=== PATIENT | male | born 1945 | race Caucasian/White ===

== ENCOUNTER 2017-01-18 10:15 | Outpatient (CLI) | payer MEDICARE, OTHER ==
--- NOTE | 2017-01-18 16:58 | XRAY Report ---
COMPLETE CERVICAL SPINE: 01/18/2017 CLINICAL INDICATION: Numbness of hands and arms. COMPARISON: 01/02/2008 FINDINGS: AP, lateral, oblique, odontoid views of the cervical spine demonstrate progression of dege nerative disk and facet disease. Osseous neural foraminal encroachment has increased, especially on the left at C5-6 and 6-7. There is no evidence of interval fracture. The prevertebral soft tissues appear unremarkable. IMPRESSION: PROGRESSION OF DEGENERATIVE CHANGES. JOB #: [id number] EXT JOB #:[id number]
== END 2017-01-18 10:16 | disposition home or self-care (01) ==
LOC: DI.S 10:15
PROVIDERS: ATTEND Nurse Practitioner Family
DX: M50.30 Other cervical disc degeneration, unspecified cervical region (principal); M47.892 Other spondylosis, cervical region
CPT/HCPCS: 72050

== ENCOUNTER 2017-10-26 19:31 | Outpatient (CLI) | payer OTHER, MEDICARE | END 2017-10-26 19:32 | disposition critical access hospital (66) | LOC: EMS 19:31 | PROVIDERS: ATTEND Surgery | DX: R07.81 Pleurodynia (principal); M25.511 Pain in right shoulder; V22.4XXA Motorcycle driver injured in collision with two- or three-wheeled motor vehicle in traffic accident, initial encounter; Y92.414 Local residential or business street as the place of occurrence of the external cause | CPT/HCPCS: A0425; A0429 ==

== ENCOUNTER 2017-10-26 20:12 | Emergency (ER) | payer OTHER, MEDICARE ==
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
[2017-10-26] MEDS ORDERED: HYDROcod/ACET 5/325 Prepack 4 PO STA (22:03)
--- NOTE | 2017-10-26 22:13 | XRAY Preliminary Report ---
Exam: XR ELBOW 3 VIEW RT IMPRESSION: No right elbow fracture or malalignment. [facility] SITE ID: [id number]
--- NOTE | 2017-10-26 22:14 | XRAY Preliminary Report ---
Exam: XR KNEE 4 VIEW RT IMPRESSION: No right knee fracture or malalignment. [facility] SITE ID: [id number]
--- NOTE | 2017-10-26 22:17 | XRAY Preliminary Report ---
Exam: XR RIBS W/PA CHEST RT IMPRESSION: 1. No displaced rib fracture or complication from rib fracture seen. 2. Right peripheral upper lung zone approximately 3.5 cm pleural-based density which is more rounded than would be expected for a subpleural hematoma. In the absence of a known malignancy, favor subple ural lipoma. Recommend nonemergent follow-up chest CT for confirmation. [facility] SITE ID: [id number]
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
[2017-10-26 22:31] VITALS: BP 152/94
[2017-10-26] MEDS ORDERED: BACITRACIN OINT TOP ONE (23:00)
== END 2017-10-26 22:57 | disposition home or self-care (01) ==
LOC: EDUNIT# → ED 20:12
DX: R91.1 Solitary pulmonary nodule (principal); S59.901A Unspecified injury of right elbow, initial encounter; V22.4XXA Motorcycle driver injured in collision with two- or three-wheeled motor vehicle in traffic accident, initial encounter; Y93.I9 Activity, other involving external motion
CPT/HCPCS: 71101; 73080; 73564; 99283; 99284; A9270

== ENCOUNTER 2019-03-07 06:37 | Outpatient (CLI) | payer MEDICARE, OTHER ==
--- NOTE | 2019-03-10 05:53 | Ultrasound Report ---
Reason: ABDOMINAL AORTIC ANEURYSM SCREENING Procedure Date: 03/07/2019 Accession Number: [id number] / [id number] Procedure: US - Aorta Screening CPT Code: FULL RESULT: EXAM: AORTIC DOPPLER ULTRASOUND EXAM DATE: 03/07/2019 07:40 AM CLINICAL HISTORY: Abdominal aortic aneurysm screening. [id number] smoking history for 25 years. COMPARISON: None. TECHNIQUE: Real-time sonographic imaging of retroperitoneal vascular structures, including color-flow, Doppler flow and spectral analysis was performed by the membership manager. Multiple data entry representative static images were saved for review. FINDINGS: Aorta: Abdominal aorta is normal in caliber as visualized. Proximal aorta measures 2.7 x 2.8 cm. The midportion of the aorta measures 2.1 cm and the distal portion of the aorta measures up to 2 cm. Normal color flow. Mild atherosclerotic vascular disease. Aorta: Proximal: Sagittal AP 2.8 x 2.5 cm. Mid: Transverse 2.1 x 2.3 cm. Distal: Transverse 2.0 x 1.9 cm. Plaque visualized: Yes. Iliacs: Right Iliac: Transverse 1.4 x 1.3 cm. Left Iliac: Transverse 1.4 x 1.1 cm. Iliac Vessels: Bilateral common iliac arteries are normal in caliber, measuring 1.4 x 1.0 cm on the right and 1.4 x 1.3 cm on the left. Other: None. IMPRESSION: No aortic aneurysm. [facility]
== END 2019-03-07 06:38 | disposition home or self-care (01) ==
LOC: DI 06:37
PROVIDERS: ATTEND Family Medicine
DX: Z13.6 Encounter for screening for cardiovascular disorders (principal); Z87.891 Personal history of nicotine dependence
CPT/HCPCS: 76706

== ENCOUNTER 2022-09-05 10:37 | Outpatient (CLI) | payer MEDICARE, OTHER | END 2022-09-05 23:59 | disposition critical access hospital (66) | LOC: EMS 10:37 | DX: R07.89 Other chest pain (principal) | CPT/HCPCS: A0425; A0427 ==

== ENCOUNTER 2022-09-05 11:04 | Emergency (ER) | payer MEDICARE, OTHER ==
[2022-09-05 11:48] LABS: BASOPHILS # (AUTO) 0.1 10^3/uL (0.0-0.1); BASOPHILS % (AUTO) 1.3 %; EOSINOPHILS # (AUTO) 0.2 10^3/uL (0.0-0.7); EOSINOPHILS % (AUTO) 3.5 %; HCT - HEMATOCRIT 42.8 % (42.0-52.0); HGB - HEMOGLOBIN 14.4 g/dL (14.0-18.0); LYMPHOCYTES # (AUTO) 1.5 10^3/uL (1.5-3.5); LYMPHOCYTES % (AUTO) 33.8 %; MEAN CORPUSCULAR HEMOGLOBIN 29.1 pg (27.0-31.0); MEAN CORPUSCULAR HGB CONC 33.6 g/dL (32.0-36.0); MEAN CORPUSCULAR VOLUME 86.6 fL (80.0-94.0); MEAN PLATELET VOLUME 9.4 fL (7.4-11.4); MONOCYTES # (AUTO) 0.4 10^3/uL (0.0-1.0); MONOCYTES % (AUTO) 9.2 %; NEUTROPHILS # (AUTO) 2.4 10^3/uL (1.5-6.6); NEUTROPHILS % (AUTO) 51.8 %; PLT - PLATELET COUNT 166 10^3/uL (130-450); RED BLOOD COUNT 4.94 10^6/uL (4.70-6.10); WHITE BLOOD COUNT 4.6 x10^3/uL (4.8-10.8)
[2022-09-05 11:55] LABS: INR 1.1 (0.8-1.2); PT - PROTHROMBIN TIME 12.4 secs (9.9-12.6)
[2022-09-05 12:03] LABS: D-DIMER 201.5 ng/mL (200.0-255.0)
[2022-09-05 12:04] LABS: ALBUMIN 3.6 g/dL (3.2-5.5); ALBUMIN/GLOBULIN RATIO 1.3 (1.0-2.2); BILIRUBIN,TOTAL 0.6 mg/dL (0.2-1.0); CALCIUM 8.6 mg/dL (8.5-10.3); POTASSIUM 3.8 mmol/L (3.5-5.0); TOTAL PROTEIN 6.4 g/dL (6.7-8.2)
[2022-09-05] MEDS: ASPIRIN EC 325 MG TABLET PO SCH (12:11)
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
[2022-09-05 16:09] VITALS: BP 144/97
--- NOTE | 2022-09-05 18:33 | ED Physician Documentation ---
History of Present Illness - Stated complaint Stated Complaint: CHEST PAIN - Chief complaint Chief Complaint: Cardiac - Additonal information Additional information: Patient is a 76-year-old male presenting to the emergency department chief c omplaint of chest pain. Reports intermittent episodes of left-sided chest pain x3 days. It is happening randomly and he does not report an association with exertion. Denies previous episodes of chest pain. Denies any known history of coronary artery disease. Does report that he is not smoker but quit greater than 4 years ago. Denies history hypertension or diabetes. Reports he is uncertain but may have elevated cholesterol. Denies any travel history of blood clots. Denies any fever, chills, shortness of breath, abdominal pain, nausea vomiting diarrhea constipation. Review of Systems Constitutional: denies: Fever, Chills, Fatigue, Weight Loss Eyes: denies: Loss of vision Ears: denies: Loss of hearing Nose: denies: Rhinorrhea / runny nose Throat: denies: Dental pain / toothache Cardiac: reports: Chest pain / pressure. denies: Palpitations, Pedal edema Respiratory: denies: Dyspnea, Cough, Hemoptysis GI: denies: Abdominal Pain, Nausea, Vomiting, Constipation, Diarrhea : denies: Dysuria Skin: denies: Rash PD PAST MEDICAL HISTORY - Past Surgical History Past Surgical History: Yes Ortho: Other - Present Medications Home Medications: Ambulatory Orders Medication Instructions Recorded Confirmed HYDROcod/ACETAM 5/325 [[place]wood 5/325] 1 - 2 ea PO Q6H PRN #10 tablet 10/26/17 - Allergies Allergies/Adverse Reactions: Allergies Allergy/AdvReac Type Severity Reaction Status Date / Time No Known Drug Allergies Allergy Verified 10/26/17 20:38 - Social History Does the pt smoke?: No Smoking Status: Never smoker Does the pt drink ETOH?: Yes Does the pt have substance abuse?: No - Immunizations Immunizations are current?: Yes - POLST Patient has POLST: No PD ED PE NORMAL - Vitals Vital signs reviewed: Yes (WNL) - General General: Alert and oriented X 3, No acute distress, Well developed/nourished - HEENT HEENT: Atraumatic, PERRL, EOMI, Moist mucous membranes - Neck Neck: Supple, no meningeal sign - Cardiac Cardiac: RRR, No murmur, No gallop, No rub, Strong equal pulses - Respiratory Respiratory: No respiratory distress, Clear bilaterally - Abdomen Abdomen: Normal bowel sounds, Non tender - Male Male : Deferred - Rectal Rectal: Deferred - Derm Derm: Normal color - Extremities Extremities: No deformity - Neuro Neuro: Alert and oriented X 3, mine captain 2-12 intact, No motor deficit, No sensory deficit, Normal speech Results - Vitals Vitals: Vital Signs - 24 hr 09/05/22 09/05/22 09/05/22 11:20 11:36 12:12 Temperature 36.4 C L Heart Rate 72 67 77 Respiratory 18 18 18 Rate Blood Pressure 121/75 112/75 106/77 O2 Saturation 97 95 96 09/05/22 09/05/22 09/05/22 12:48 13:55 14:00 Temperature Heart Rate 71 67 61 Respiratory 18 18 18 Rate Blood Pressure 109/79 116/82 H 121/79 O2 Saturation 96 96 97 09/05/22 09/05/22 09/05/22 14:30 15:00 15:30 Temperature Heart Rate 63 64 65 Respiratory 18 18 20 Rate Blood Pressure 120/88 H 137/88 H O2 Saturation 97 98 97 09/05/22 16:00 Temperature Heart Rate 66 Respiratory 20 Rate Blood Pressure 144/97 H O2 Saturation 97 Oxygen O2 Source Room air - EKG (time done) 1115 EKG releavant findings:: EKG personally interpreted by author of this note. Relevant findings are: Sinus rhythm with rate 71 bpm. Left axis deviation. Normal [place], QRS, QTc intervals. No ST segment elevations. Nonspecific T wave inversions noted in the precordial leads.No previous EKG available for comparison. 1358 EKG releavant findings:: EKG personally interpreted by author of this note. Relevant findings are: Sinus rhythm with rate 62 bpm. Left axis deviation. Normal [place], QRS, QTc intervals. No ST segment elevations. T wave inversions remain persistent in the precordial leads unchanged from previous. - Labs Labs: Laboratory Tests 09/05/22 09/05/22 09/05/22 11:41 11:41 11:41 WBC 4.6 L RBC 4.94 Hgb 14.4 Hct 42.8 MCV 86.6 MCH 29.1 MCHC 33.6 RDW 13.0 Plt Count 166 MPV 9.4 Neut # (Auto) 2.4 Lymph # (Auto) 1.5 [place] # (Auto) 0.4 Eos # (Auto) 0.2 Baso # (Auto) 0.1 Absolute Nucleated RBC 0.00 Nucleated RBC % 0.0 PT 12.4 INR 1.1 D-Dimer 201.5 Sodium 136 Potassium 3.8 Chloride 107 Carbon Dioxide 21 Anion Gap 8.0 BUN 17 Creatinine 1.0 Estimated GFR (MDRD) 73 L Glucose 176 H Calcium 8.6 Total Bilirubin 0.6 AST 34 ALT 46 Alkaline Phosphatase 67 Troponin I High Sens Total Protein 6.4 L Albumin 3.6 Globulin 2.8 Albumin/Globulin Ratio 1.3 Lipase 34 09/05/22 09/05/22 11:41 13:52 WBC RBC Hgb Hct MCV MCH MCHC RDW Plt Count MPV Neut # (Auto) Lymph # (Auto) [place] # (Auto) Eos # (Auto) Baso # (Auto) Absolute Nucleated RBC Nucleated RBC % PT INR D-Dimer Sodium Potassium Chloride Carbon Dioxide Anion Gap BUN Creatinine Estimated GFR (MDRD) Glucose Calcium Total Bilirubin AST ALT Alkaline Phosphatase Troponin I High Sens 5.5 3.7 Total Protein Albumin Globulin Albumin/Globulin Ratio Lipase PD Medical Decision Making - ED course Complexity details: reviewed results, re-evaluated patient, considered differential, d/w patient, d/w professional services consultant ED course: Patient is a 76-year-old male presenting to the emergency department with chief complaint of intermittent episodes of chest pain x3 days. Afebrile, hemodynamically stable arrival to the emergency department. Denied active symptoms while in the emergency department. Initial differential diagnosis included but not limited to ACS, PE, pneumothorax, pneumonia, aortic dissection, pericarditis, pleurisy, musculoskeletal strain. Patient's EKG found to have T wave inversions in the precordial's without repeat EKG available for comparison. Patient's D-dimer is negative and he does not have active pain, tachycardia, tachypnea, hypoxia or history hemoptysis that would given the concern for pulmonary emboli. His chest x-ray does not demonstrate pneumothorax, mediastinal widening or cardiomegaly. Serial troponins were both negative and downtrending. I did repeat EKG which demonstrated persistent T wave inversions in the precordial unchanged from initial. On reevaluation patient found to be resting comfortably and denies any active symptoms however did report that he believes that he may have some shoulder strain from how he has been holding his Jon both at home and while in the emergency department. I discussed all findings with him. We discussed his risk factors for coronary artery disease including his age, male sex and weight. We discussed his EKG changes. I did consult with the on-call hospitalist who informed me that at this time with the help does not have the ability to perform stress or other cardiac risk stratification testing. I discussed this directly with him, telling him well at this time there is no deviation of injury to his heart though very important for him to receive further testing because he does have risk factors for coronary artery disease. I explained the limitations of our facility and we discussed options such as transfer versus outpatient management. We discussed the delays that would likely be involved in both including potential for extended boarding in the emergency department pending bed availability given the current regional [facility] crisis versus delays in trying to arrange for testing on outpatient basis. At this time he reports feeling comfortable being discharged from the emergency department given that he has been pain-free since arrival to the emergency department for follow-up with primary care. He was given explicit instructions both to follow-up promptly with primary care as well as to return to the emergency department immediately for any recurrence of his chest pain. Departure - Departure Disposition: 01 Home, Self Care Clinical Impression: Abnormal EKG Chest pain Qualifiers: Chest pain type: unspecified Qualified Code(s): R07.9 - Chest pain, unspecified Instructions: ED Chest Pain Atypical Unkn Cause Comments: Thank you for allowing us to care for you today At [facility]. Today in the emergency department your evaluated for any possible life- threatening medical emergency. Overall the majority of your tests in the emergency department are very reassuring. There is no indication of injury to your heart, blood clot to your lung or other life-threatening process at this time. You did have some abnormalities noted on your EKG which remained stable between repeat testing. You do have some risk factors for coronary artery disease. As we discussed I would like you to follow-up carefully with your primary care doctor as I believe would benefit from some outpatient testing. It is important that if your pain returns or worsens that you return to the emergency department immediately for reevaluation. Again if it anytime you have new or worsening symptoms please not hesitate to return. Discharge Date/Time: 09/05/22 16:19
== END 2022-09-05 16:19 | disposition home or self-care (01) ==
LOC: EDUNIT# → ED 11:04
DX: R07.9 Chest pain, unspecified (principal); R94.31 Abnormal electrocardiogram [ECG] [EKG]; Z87.891 Personal history of nicotine dependence
CPT/HCPCS: 36415; 80053; 83690; 84484; 85025; 85379; 85610; 93005; 99283; 99284

== ENCOUNTER 2022-09-09 07:34 | Outpatient (CLI) | payer MEDICARE, OTHER | END 2022-09-09 07:35 | disposition EMS.NT | LOC: EMS 07:34 | DX: R07.89 Other chest pain (principal) ==

== ENCOUNTER 2022-09-09 20:36 | Outpatient (CLI) | payer MEDICARE, OTHER | END 2022-09-09 23:59 | disposition short-term general hospital (02) | LOC: EMS 20:36 | DX: R07.9 Chest pain, unspecified (principal) | CPT/HCPCS: A0425; A0427 ==

== ENCOUNTER 2022-11-22 10:23 | Outpatient (CLI) | payer MEDICARE, OTHER ==
--- NOTE | 2022-11-22 14:28 | XRAY Report ---
PROCEDURE: Wrist 4 View LT INDICATIONS: PAIN IN LEFT WRIST TECHNIQUE: 4 views of the wrist were acquired. COMPARISON: None. FINDINGS: Bones: No acute fractures or dislocations. No suspicious bony lesions. Scaphoid view: Scaphoid appears intact. Scapholunate interval is maintained. Soft tissues: Chronic appearing soft tissue calcifications project over the dorsal left wrist best s een on the lateral view. IMPRESSION: Left wrist without osseous abnormalities or malalignment. Chronic appearing coarse soft tissue calcifications over the dorsal left wrist are indeterminate. The se may represent sequela of remote inflammation or trauma. If there is continued clinical concern for pathology or occult fracture, consider follow-up imaging with repeat radiographs in 10-14 days and p ossible advanced imaging (CT, MRI, bone scan) if symptoms persist. Reviewed by: Modesto Mcguire MD on 11/22/2022 2:27 PM PDT Approved by: Modesto Mcguire MD on 11/22/2022 2:27 PM PDT Station ID: [id number]
== END 2022-11-22 10:24 | disposition home or self-care (01) ==
LOC: DI 10:23
PROVIDERS: ATTEND Physician Assistant
DX: M25.532 Pain in left wrist (principal)

== ENCOUNTER 2023-06-20 23:31 | Outpatient (CLI) | payer MEDICARE, OTHER | END 2023-06-20 23:32 | disposition critical access hospital (66) | LOC: EMS 23:31 | DX: M54.2 Cervicalgia (principal); M25.512 Pain in left shoulder; M79.602 Pain in left arm | CPT/HCPCS: A0425; A0429 ==

== ENCOUNTER 2023-06-20 23:57 | Emergency (ER) | payer MEDICARE, OTHER ==
--- NOTE | 2023-06-21 00:02 | ED Physician Documentation ---
PD HPI BACK PAIN - Stated complaint Stated Complaint: NECK, SHOULDER, CP - History obtained from History obtained from: Patient - Additional information Additional information: BIBA. HPI from patient. Patient complains of left upper back pain that radiates to his left neck and down the left upper extremity. This started approximately 24 hours ago without an inciting event. He has not noticed any exacerbating or ameliorating factors. The pain is not worse with deep breath then or with exertion. The pain is not worse with movement, in general or of the left upper extremity.He denies shortness of breath, fever, cough. He describes the pain as soreness, aching. He denies migel chest pain. He took 325 mg of aspirin p.o. and use nitroglycerin sublingual x 1. The symptoms have completely resolved after these measures. Past medical history is relevant for coronary artery stent that was placed this past August. Patient says that mark's symptoms are not similar to the symptoms he had in August. Review of Systems Cardiac: denies: Chest pain / pressure, Palpitations, Pedal edema, Calf pain Respiratory: reports: Reviewed and negative GI: reports: Reviewed and negative Skin: denies: Rash Musculoskeletal: reports: Reviewed and negative (left upper back pain radiates to neck and down LUE but no neck or LUE pain per se) Neurologic: denies: Generalized weakness, Focal weakness, Numbness, Headache PD PAST MEDICAL HISTORY - Past Medical History Past Medical History: Yes Cardiovascular: Coronary artery disease - Past Surgical History Past Surgical History: Yes Ortho: Other - Present Medications Home Medications: Ambulatory Orders Medication Instructions Recorded Confirmed HYDROcod/ACETAM 5/325 [[place] 5/325] 1 - 2 ea PO Q6H PRN #10 tablet 10/26/17 Aspirin Chewable [St Ameya 81 mg PO DAILY 06/21/23 06/21/23 Aspirin] Atorvastatin Calcium [Lipitor] 80 mg PO DAILY 06/21/23 06/21/23 Losartan Potassium 25 mg PO DAILY 06/21/23 06/21/23 Metoprolol Succinate [Toprol Xl] 50 mg PO DAILY 06/21/23 06/21/23 Pantoprazole [Protonix] 40 mg PO DAILY 06/21/23 06/21/23 Prasugrel HCl 10 mg PO DAILY 06/21/23 06/21/23 - Allergies Allergies/Adverse Reactions: Allergies Allergy/AdvReac Type Severity Reaction Status Date / Time No Known Drug Allergies Allergy Verified 06/21/23 00:31 - Social History Does the pt smoke?: No Smoking Status: Never smoker Does the pt drink ETOH?: Yes Does the pt have substance abuse?: No - Immunizations Immunizations are current?: Yes - POLST Patient has POLST: No PD ED PE NORMAL - Vitals Vital signs reviewed: Yes - General General: Alert and oriented X 3, No acute distress, Well developed/nourished - Neck Neck: Supple, no meningeal sign - Cardiac Cardiac: RRR, No murmur, No gallop, No rub - Respiratory Respiratory: No respiratory distress, Clear bilaterally - Abdomen Abdomen: Soft, Non tender - Derm Derm: Normal color, Warm and dry, No rash - Extremities Extremities: No edema Results - Vitals Vitals: Vital Signs - 24 hr 06/21/23 06/21/23 06/21/23 00:06 00:30 01:28 Temperature 36.4 C L Heart Rate 60 62 59 L Respiratory 18 16 18 Rate Blood Pressure 136/113 H 121/76 132/78 H O2 Saturation 97 98 95 06/21/23 01:58 Temperature Heart Rate 58 L Respiratory 18 Rate Blood Pressure 130/84 H O2 Saturation 96 Oxygen O2 Source Room air - EKG (time done) No standard instances EKG releavant findings:: EKG personally interpreted by author of this note. Relevant findings are: Rate: Rate (enter#) (60) Rhythm: NSR Vista: LAD, Anterior hemiblock Intervals: Normal MI Ischemia: Normal ST segments, T wave inversion (V3-V5), Other (flat T waves diffusely except V3-V5 (inverted)) Compare to prior EKG: Unchanged from prior EKG (no significant variation compared to 09/05/22) - Labs Labs: Laboratory Tests 06/21/23 06/21/23 00:11 00:11 WBC 5.2 RBC 4.64 L Hgb 13.7 L Hct 40.9 L MCV 88.1 MCH 29.5 MCHC 33.5 RDW 12.9 Plt Count 146 MPV 9.6 Neut # (Auto) 2.8 Lymph # (Auto) 1.6 [place] # (Auto) 0.6 Eos # (Auto) 0.2 Baso # (Auto) 0.0 Absolute Nucleated RBC 0.00 Nucleated RBC % 0.0 Sodium 138 Potassium 3.8 Chloride 108 Carbon Dioxide 21 Anion Gap 9.0 BUN 14 Creatinine 0.8 Estimated GFR (MDRD) 94 Glucose 162 H Calcium 8.9 Total Bilirubin 0.8 AST 29 ALT 33 Alkaline Phosphatase 102 Troponin I High Sens 4.8 Total Protein 6.1 L Albumin 4.0 Globulin 2.1 Albumin/Globulin Ratio 1.9 Lipase 22 - Rads (name of study) chest xray Relevant Findings:: Prelim report reviewed, See rad report PD Medical Decision Making - ED course Complexity details: reviewed old records, reviewed results, re-evaluated isaías kim, considered differential, d/w patient ED course: No concerning nor diagnostic findings on tonight's tests including EKG, chest x- ray, blood tests. His high-sensitivity troponin is normal. There were no ST changes on the EKG, and the flat/inverted T waves are comparable to a previous EKG from earlier this year. He is asymptomatic throughout ED stay. The description of symptoms is left upper back pain rating to his neck and his arm; he says this does not feel similar to symptoms he was having this past August which culminated in cardiac cath and a stent placed in one of his coronary arteries that was over 90% stenosed (records from [facility] regarding the procedure performed in August 2022 were requested, faxed to [facility], and reviewed by me). A page was put out to the patient's cardiology group but I did not hear back from them and, after an hour, I again reevaluated the patient. He still is asymptomatic. I feel discharge home is appropriate at this time. We discussed return precautions. I instructed him to contact his cardiology group in the morning when the office opens to arrange for next available appointment. Departure - Departure Disposition: Home, Self Care Clinical Impression: Chest pain Qualifiers: Chest pain type: unspecified Qualified Code(s): R07.9 - Chest pain, unspecified Condition: Good Instructions: ED Chest Pain Atypical Unkn Cause Follow-Up: ELISEO CARVALHO ARNP [Primary Care Provider] - Comments: There were no concerning or diagnostic findings on tonight's test, including the EKG, chest x-ray, and the blood tests. The blood tests included a cardiac enzyme blood test which was normal. These are reassuring results, but the cause of your symptoms remains unclear. As we discussed, I recommend that you contact your cardiology group in the morning when their office opens to arrange for immediate follow-up appointment for reevaluation. Forms: PCP List Discharge Date/Time: 06/21/23 02:21
[2023-06-21 00:24] LABS: BASOPHILS % (AUTO) 0.6 %; EOSINOPHILS # (AUTO) 0.2 10^3/uL (0.0-0.7); EOSINOPHILS % (AUTO) 3.7 %; HCT - HEMATOCRIT 40.9 % (42.0-52.0); HGB - HEMOGLOBIN 13.7 g/dL (14.0-18.0); LYMPHOCYTES # (AUTO) 1.6 10^3/uL (1.5-3.5); LYMPHOCYTES % (AUTO) 31.1 %; MEAN CORPUSCULAR HEMOGLOBIN 29.5 pg (27.0-31.0); MEAN CORPUSCULAR HGB CONC 33.5 g/dL (32.0-36.0); MEAN CORPUSCULAR VOLUME 88.1 fL (80.0-94.0); MEAN PLATELET VOLUME 9.6 fL (7.4-11.4); MONOCYTES # (AUTO) 0.6 10^3/uL (0.0-1.0); NEUTROPHILS # (AUTO) 2.8 10^3/uL (1.5-6.6); NEUTROPHILS % (AUTO) 53.4 %; PLT - PLATELET COUNT 146 10^3/uL (130-450); RED BLOOD COUNT 4.64 10^6/uL (4.70-6.10); RED CELL DISTRIBUTION WIDTH 12.9 % (12.0-15.0); WHITE BLOOD COUNT 5.2 x10^3/uL (4.8-10.8)
[2023-06-21 00:35] LABS: TROPONIN I HIGH SENSITIVITY 4.8 ng/L (2.3-19.7)
[2023-06-21 00:39] LABS: ALBUMIN/GLOBULIN RATIO 1.9 (1.0-2.2); BILIRUBIN,TOTAL 0.8 mg/dL (0.2-1.0); CALCIUM 8.9 mg/dL (8.5-10.3); CREATININE 0.8 mg/dL (0.6-1.3); POTASSIUM 3.8 mmol/L (3.5-4.5); TOTAL PROTEIN 6.1 g/dL (6.4-8.9)
--- NOTE | 2023-06-21 00:53 | XRAY Report ---
PROCEDURE: Chest 2V INDICATIONS: left posterior thoracic pain TECHNIQUE: 2 views of the chest were acquired. COMPARISON: None. FINDINGS: Surgical changes and devices: None. Lungs and pleura: No pleural effusions or pneumothorax. Lungs are clear. Mediastinum: Mediastinal contours appear normal. Heart size is normal. Bones and chest wall: No suspicious bony lesions. Overlying soft tissues appear unremarkable. IMPRESSION: No acute cardiopulmonary process. Reviewed by: Kathie Alexander MD on 06/21/2023 12:52 AM [facility] Approved by: Kathie Alexander MD on 06/21/2023 12:52 AM [facility] Station ID: [id number]
[2023-06-21 02:13] VITALS: BP 130/84; O2SAT 96
== END 2023-06-21 02:21 | disposition home or self-care (01) ==
LOC: EDUNIT# → ED 23:57
DX: R07.9 Chest pain, unspecified (principal)
CPT/HCPCS: 36415; 80053; 83690; 84484; 85025; 93005; 99283; 99284

== ENCOUNTER 2023-10-22 07:04 | Day surgery (SDC) | payer MEDICARE, OTHER ==
[2023-10-22] MEDS: LACTATED RINGERS 1,000 ML IV ONE ×2 (07:20→08:48)
--- NOTE | 2023-10-22 07:41 | ANESTHESIA ---
Pre-Anesthesia VS, & Labs - Diagnosis hx polyps - Procedure colonoscopy Vital Signs: Temp Pulse Resp BP Pulse Ox O2 Flow Rate 36.2 C L 72 15 132/88 H 95 10/22/23 07:21 10/22/23 07:21 10/22/23 07:21 10/22/23 07:21 10/22/23 07:21 Height: 5 ft 5 in Weight (kg): 91.7 kg Body Mass Index: 33.6 BMI Classification: Obese - NPO >8 hours Last Fluid Intake: am prep - Lab Results Lab results reviewed: Yes Home Medications and Allergies Home Medications: Ambulatory Orders Albuterol Sulf [Ventolin Hfa Inhaler] 1 - 2 puffs INH Q4HR PRN 10/18/23 Ezetimibe [Zetia] 10 mg PO QD 10/18/23 Fluticasone [Flonase] 1 sprays LORETO DAILY 10/18/23 Nitroglycerin [Nitrostat] 0.4 mg SL [id number] PRN 10/18/23 allopurinoL [Zyloprim] 100 mg PO DAILY 10/18/23 Aspirin Chewable [St Ameya Aspirin] 81 mg PO DAILY 06/21/23 Atorvastatin Calcium [Lipitor] 80 mg PO DAILY 06/21/23 Losartan Potassium 25 mg PO QPM 06/21/23 Pantoprazole [Protonix] 40 mg PO DAILY 06/21/23 Albuterol Sulf [Ventolin Hfa Inhaler] 1 - 2 puffs INH Q4HR PRN 10/18/23 Ezetimibe [Zetia] 10 mg PO QD 10/18/23 Fluticasone [Flonase] 1 sprays LORETO DAILY 10/18/23 Nitroglycerin [Nitrostat] 0.4 mg SL [id number] PRN 10/18/23 allopurinoL [Zyloprim] 100 mg PO DAILY 10/18/23 Allergies/Adverse Reactions: Allergies Allergy/AdvReac Type Severity Reaction Status Date / Time No Known Drug Allergies Allergy Verified 06/21/23 00:31 Anes History & Medical History - Anesthetic History Anesthesia Complications: reports: No previous complications, Other-see comment (hallucinations with ankle surgery) Family history of Anesthesia Complications: Denies Family history of Malignant Hyperthermia: Denies - Medical History Cardiovascular: reports: Hypertension, High cholesterol, Coronary artery disease, Angina Pulmonary: reports: None Gastrointestinal: reports: Colon polyps Urinary: reports: Kidney stones Musculoskeletal: reports: Osteoarthritis, Gout Endocrine/Autoimmune: reports: Other Skin: reports: None Smoking Status: Never smoker - Surgical History General: reports: Colonoscopy Cardiothoracic: reports: Coronary stent (08/2022) Orthopedic: reports: Arthroscopic surgery, Other Exam General: Alert, Oriented x3, Cooperative Dental: WNL Mouth Openin Fingerbreadth Neck Mobility: Normal Mallampati classification: II Thyromental Distance: 4-6 cm Respiratory: Lungs clear, Normal breath sounds, No respiratory distress Cardiovascular: Regular rate Neurological: Normal speech Mental/Cognitive Status: Alert/Oriented X3, Normal for patient Cognitive Status: Within normal limits Plan Anesthesia Type: Total IV Consent for Procedure(s) Verified and Reviewed: Yes Code Status: Attempt Resuscitation ASA classification: 3-Severe systemic disease Is this case an emergency?: No
--- NOTE | 2023-10-22 09:04 | ANESTHESIA POST OP EVALUATION ---
Anesthesia Post Eval - Post Anesthesia Eval Vitals: Last Vital Signs Temp 36.6 C 10/22/23 09:00 Pulse 80 10/22/23 09:00 Resp 16 10/22/23 09:00 BP 106/74 10/22/23 09:00 Pulse Ox 97 10/22/23 09:00 O2 Flow Rate CV Function Including HR & BP: Stable Pain Control: Satisfactory Nausea & Vomiting: Negative Mental Status: Baseline Respiratory Status: Airway Patent Hydration Status: Satisfactory Anesthesia Complications: None
[2023-10-22 09:22] VITALS: BP 130/85; O2SAT 98
== END 2023-10-22 07:05 | disposition home or self-care (01) ==
LOC: SDS 07:04
PROVIDERS: ATTEND Surgery
PROC: 0DBL8ZZ Excision of Transverse Colon, Via Natural or Artificial Opening Endoscopic (ICD-10-PCS; principal; 2023-10-22 08:15)
DX: Z12.11 Encounter for screening for malignant neoplasm of colon (principal); K63.5 Polyp of colon; K64.2 Third degree hemorrhoids; E66.9 Obesity, unspecified; Z68.33 Body mass index [BMI] 33.0-33.9, adult; I10 Essential (primary) hypertension; I25.10 Atherosclerotic heart disease of native coronary artery without angina pectoris; Z95.5 Presence of coronary angioplasty implant and graft; Z87.891 Personal history of nicotine dependence
CPT/HCPCS: 45385; J7120